=== PATIENT | male | born 1960 | race African-American/Black ===

== ENCOUNTER 2023-06-25 13:00 | Outpatient (RCR) | payer BC, SELFPAY ==
[2023-06-25 14:01] LABS: Glucose - Point of Care 91 mg/dl (70-99)
[2023-06-25 14:42] LABS: Glucose - Point of Care 121 mg/dl (70-99)
== END 2023-06-25 23:59 | disposition home or self-care (01) ==
LOC: CRHB 13:00
PROVIDERS: ATTENDING PHYSICIAN Nuclear Medicine Nuclear Cardiology; FAMILY PHYSICIAN Physician Assistant
DX: I25.10 Atherosclerotic heart disease of native coronary artery without angina pectoris (principal); Z95.1 Presence of aortocoronary bypass graft
CPT/HCPCS: 82962; 93798